=== PATIENT | male | born 1965 | race Caucasian/White ===

== ENCOUNTER 2017-04-13 21:25 | Emergency (ER) | payer BC ==
[2017-04-13 21:47] VITALS: BP 129/87
[2017-04-13] MEDS ORDERED: Lidocaine 2% PF * 5 ML VIAL INJ ONE (21:57)
--- NOTE | 2017-04-13 22:26 | UC ---
Laceration HPI - HPI Summary HPI Summary: laceration lip x 1 hr ago burr grinder blade blew up and hit him on right upper lip - History Of Current Complaint Chief Complaint: UCSkin Stated Complaint: LIP INJURY Time Seen by Provider: 04/13/17 21:50 Hx Obtained From: Patient Laceration Location: Face - right upper lip Mechanism Of Injury: Blunt Trauma Onset/Duration: Sudden Onset, Lasting Hours - 1, Still Present Severity: Moderate Pain Intensity: 0 Aggravating Factors: Movement Facial Trauma: 1 - 1.5 cm laceration right upper lip - Allergies/Home Medications Allergies/Adverse Reactions: Allergies Allergy/AdvReac Type Severity Reaction Status Date / Time No Known Allergies Allergy Verified 04/13/17 21:47 Home Medications: Home Medications HYDROcodone/ACETAMIN 5-325 MG* [[place] 5-325 TAB*] 1 tab PO Q4H PRN 04/13/17 [ History Confirmed 04/13/17] Levothyroxine TAB* [Synthroid TAB*] 25 mcg PO 0800 04/13/17 [History Confirmed 04/13/17] PMH/Surg Hx/FS Hx/Imm Hx Previously Healthy: Yes Endocrine History: Thyroid Disease - Surgical History Surgical History: None - Family History Known Family History: Positive: Cardiac Disease - Social History Alcohol Use: Weekly Substance Use Type: None Smoking Status (MU): Never Smoked Tobacco Review of Systems Constitutional: Negative Eyes: Negative ENT: Negative Respiratory: Negative Cardiovascular: Negative Is Patient Immunocompromised?: No All Other Systems Reviewed And Are Negative: Yes Physical Exam Triage Information Reviewed: Yes Appearance: Well-Appearing, No Pain Distress, Well-Nourished Vital Signs: Initial Vital Signs Temp 97.7 F 04/13/17 21:42 Pulse 68 04/13/17 21:42 Resp 18 04/13/17 21:42 BP 129/87 04/13/17 21:42 Pulse Ox 98 04/13/17 21:42 Vital Signs Reviewed: Yes Eye Exam: Normal Eyes: Positive: Conjunctiva Clear ENT: Positive: Normal ENT inspection, Hearing grossly normal, Pharynx normal, Pharyngeal erythema Neck exam: Normal Neck: Positive: Supple Respiratory: Positive: Chest non-tender, Lungs clear, Normal breath sounds Cardiovascular: Positive: RRR, No Murmur, Pulses Normal Skin Exam: Other - 1.5 cm laceration right upper lip .5 cm laceration right lower lip Laceration Repair - Laceration Repair 1 Description: Linear - right upper lip Laceration Size After Repair: Length (cm) - 1.5, Width (mm) - 2 Type Injection: Local Anesthesia Used: 2.0% Lido - 3 ml Cleansing Completed Via Routine Prep: Yes Irrigation With Pressure Irrigation Device: Yes Closure Material: Sutures - 5.0 nylon Suture Of: Skin Suture Type: Nylon - 5.0 x 4 2 Description: Linear Laceration Size After Repair: Length (cm) - .5 Cleansing Completed Via Routine Prep: Yes Irrigation With Pressure Irrigation Device: Yes Closure Material: Skin Adhesive Laceration Course/Dx - Differential Dx - Laceration/Wound Provider Diagnoses: laceration lip Discharge - Discharge Plan Condition: Stable Disposition: HOME Patient Education Materials: Care For Your Stitches (DC), Skin Adhesive Care ( ED) Referrals: Ashtyn ORRPOrly [Primary Care Provider] - Additional Instructions: follow up in 7 days for suture removal
== END 2017-04-13 22:34 | disposition home or self-care (01) ==
LOC: UCCORT 21:25
DX: S01.511A Laceration without foreign body of lip, initial encounter (principal); W45.8XXA Other foreign body or object entering through skin, initial encounter; Y93.9 Activity, unspecified; Y92.9 Unspecified place or not applicable
CPT/HCPCS: 12011; 99211; G0463